=== PATIENT | female | born 1955 | race Caucasian/White ===

== ENCOUNTER 2022-11-19 10:22 | Emergency (ER) | payer OTHER, BC ==
[~2022-11-19] VITALS: Ht 167.6 cm; Wt 63.5 kg
[2022-11-19] MEDS ORDERED: SYNTHROID75 MCG PO (10:34)
[2022-11-19] MEDS ORDERED: MONTELUKAST SODI4 M1 PO (10:34)
[2022-11-19] MEDS ORDERED: TENORMIN50 M1 PO (10:34)
[2022-11-19] MEDS ORDERED: CLONAZEPAM0.25 MG PO (10:35)
[2022-11-19] MEDS ORDERED: TEGRETOL200 MG PO (10:36)
== END 2022-11-20 18:26 | disposition home or self-care (01) ==
LOC: ER 10:22
DX: S02.2XXA Fracture of nasal bones, initial encounter for closed fracture (principal); S00.93XA Contusion of unspecified part of head, initial encounter; S20.229A Contusion of unspecified back wall of thorax, initial encounter; W18.39XA Other fall on same level, initial encounter; Y93.89 Activity, other specified; Y92.89 Other specified places as the place of occurrence of the external cause; Y99.9 Unspecified external cause status; R55 Syncope and collapse; Z88.8 Allergy status to other drugs, medicaments and biological substances